=== PATIENT | male | born 2000 | race Caucasian/White ===

== ENCOUNTER 2021-01-22 16:42 | Emergency (ER) | payer OTHER ==
[~2021-01-22] VITALS: Ht 190.5 cm; Wt 95.3 kg
[2021-01-22 17:17] VITALS: BP 148/55
== END 2021-01-22 17:17 | disposition home or self-care (01) ==
LOC: M.ERS 16:42
DX: S01.112A Laceration without foreign body of left eyelid and periocular area, initial encounter (principal); Z88.2 Allergy status to sulfonamides; X58.XXXA Exposure to other specified factors, initial encounter; Y93.61 Activity, american tackle football; Y92.89 Other specified places as the place of occurrence of the external cause; Y99.8 Other external cause status